=== PATIENT | male | born 1960 | race Caucasian/White ===

== ENCOUNTER 2017-02-20 16:14 | Emergency (ER) | payer MEDICAID ==
[~2017-02-20] VITALS: Ht 152.4 cm; Wt 55.0 kg
[~2017-02-20 16:14] MED LIST: DIVA-18 PO; FOLI-43 PO; PHEN100C4 PO
[2017-02-20 18:55] LABS: PHENYTOIN 15.1 ug/mL (10-20)
[2017-02-20] MEDS ORDERED: LORAZEPAM 2MG/ML CPJ ONE (19:03)
[2017-02-20] MEDS ORDERED: LORAZEPAM 2MG/ML CPJ IV ONE (20:00)
[2017-02-20] MEDS ORDERED: PHENYTOIN SODIUM EXTENDED 100MG CAPSULE PO ONE (21:15)
[2017-02-20] MEDS ORDERED: DIVALPROEX SODIUM 500MG ER TABLET PO ONE (21:15)
[2017-02-20] MEDS ORDERED: PHENYTOIN SODIUM 100MG/2ML VIAL IV ONE (21:15)
[2017-02-20 23:15] VITALS: BP 109/70
== END 2017-02-20 23:51 | disposition home or self-care (01) ==
LOC: ER 17:29
DX: G40.909 Epilepsy, unspecified, not intractable, without status epilepticus (principal)
CPT/HCPCS: 36415; 80165; 80185; 96374; 96375; 99284; J1165; J2060; Z7610

== ENCOUNTER 2021-10-18 21:49 | Emergency (ER) | payer SELFPAY ==
[~2021-10-18] VITALS: Ht 162.6 cm; Wt 70.0 kg
[2021-10-18] MEDS ORDERED: HYDROCODONE/ACETAMINOPHEN 5/325MG TABLET PO ONE (23:00)
[2021-10-18 23:38] VITALS: BP 154/76
[2021-10-18] MEDS ORDERED: LIDOCAINE HCL/EPINEPHRINE 1%-EPI 1:100,000 20 ML VIAL INFIL ONE (23:45)
[2021-10-18] MEDS ORDERED: TETANUS, DIPHTHERIA, PERTUSSIS VAC/PF 0.5ML (>10YR OLD) IM ONE (23:45)
[2021-10-18] MEDS ORDERED: BACITRACIN ZINC OINT UDPKT TOP ONE (23:45)
[2021-10-19] MEDS ORDERED: CEPH500C2 MT (01:05)
[2021-10-19] MEDS ORDERED: HYDR-4001 MT (02:25)
[2021-10-19] MEDS ORDERED: IBUP-2028 MT (02:25)
== END 2021-10-19 03:59 | disposition home or self-care (01) ==
LOC: ER 21:49
DX: S72.491A Other fracture of lower end of right femur, initial encounter for closed fracture (principal); S51.012A Laceration without foreign body of left elbow, initial encounter; V03.99XA Pedestrian with other conveyance injured in collision with car, pick-up truck or van, unspecified whether traffic or nontraffic accident, initial encounter; Y93.89 Activity, other specified; Y92.89 Other specified places as the place of occurrence of the external cause; Y99.8 Other external cause status; F20.9 Schizophrenia, unspecified; Z79.899 Other long term (current) drug therapy
CPT/HCPCS: 12001; 71101; 73080; 73502; 73552; 73562; 90471; 90715; 99284; J3490; L1830